=== PATIENT | female | born 2000 | race Caucasian/White ===

== ENCOUNTER 2021-05-22 01:09 | Emergency (ER) | payer SELFPAY ==
[~2021-05-22] VITALS: Ht 162 cm; Wt 77.0 kg
--- NOTE | 2021-05-22 01:30 | ED Abdominal Pain ---
General Chief Complaint: Abdominal/GI Problems Stated Complaint: LT SIDE ABD PAIN Source of Information: Patient Exam Limitations: No Limitations History of Present Illness Date Seen by Provider: May 22, 2021 Time Seen by Provider: 01:16 Initial Comments 20-year-old female with no significant past medical history coming in due to left-sided abdominal pain. Has been going on for greater than 24 hours. Sharp, moderate, intermittent, and more in her left upper quadrant. Eating does not seem to change the pain. Has had some intermittent nausea but no vomiting for the past week. Denies any diarrhea or fever. LMP was 5 weeks ago. Had a positive test about 3 days ago and a negative yesterday. She believes she is having morning sickness. This is her second with her first being last year, but she says she had a miscarriage. Does endorse some dysuria, no hematuria, no vaginal discharge, no vaginal bleeding. Allergies and Home Medications Allergies Coded Allergies: Penicillins (Verified Allergy, Unknown, 05/22/21) Patient Home Medication List Home Medication List Reviewed: Yes Cefdinir (Cefdinir) 300 Mg Capsule, 300 MG PO BID Prescribed by: TIFFANIE AMRIO on 05/22/21 0256 Review of Systems Review of Systems Constitutional: No chills, No fever EENTM: No Blurred Vision Respiratory: Denies Cough, Denies Shortness of Air Cardiovascular: Denies Chest Pain Gastrointestinal: Abdominal Pain; Denies Diarrhea, Denies Nausea, Denies Vomiting Genitourinary: Burning Musculoskeletal: no symptoms reported Skin: no symptoms reported Psychiatric/Neurological: No Symptoms Reported Endocrine: No Symptoms Reported Hematologic/Lymphatic: No Symptoms Reported All Other Systems Reviewed Negative Unless Noted: Yes Past Flkttxi-Fizvei-Znxrrg Hx Patient Social History Tobacco Use?: No Substance use?: No Alcohol Use?: No Pt feels they are or have been: No Immunizations Up To Date Influenza Vaccine Up-to-Date: No; Not Current Past Medical History Surgeries: No Physical Exam Vital Signs Vital Signs - First Documented 05/22/21 05/22/21 01:26 01:38 Temp 36.8 Pulse 121 Resp 18 B/P (MAP) 101/79 (86) Pulse Ox 98 O2 Delivery Room Air Capillary Refill : Height/Weight/BMI Height: '" Weight: lbs. oz. kg; BMI Method: General Appearance: WD/WN, no apparent distress HEENT: PERRL/EOMI, normal ENT inspection, pharynx normal Neck: non-tender, full range of motion, supple, normal inspection Respiratory: chest non-tender, lungs clear, normal breath sounds, no respiratory distress, no accessory muscle use Cardiovascular: regular rate, rhythm, no edema, no murmur Gastrointestinal: normal bowel sounds, soft; No distended, No guarding, No rebound; tenderness (maximal tenderness in the LUQ) Extremities: normal range of motion, non-tender, normal inspection, no pedal edema, no calf tenderness, normal capillary refill Back: normal inspection, no CVA tenderness, no vertebral tenderness Neurologic/Psychiatric: no motor/sensory deficits, alert, normal mood/affect Skin: normal color, warm/dry Lymphatic: no adenopathy Progress/Results/Core Measures Results/Orders Lab Results Laboratory Tests Test 05/22/21 01:25 Range/Units White Blood Count 11.1 H 4.3-11.0 10^3/uL Red Blood Count 5.05 3.80-5.11 10^6/uL Hemoglobin 14.6 11.5-16.0 g/dL Hematocrit 42 35-52 % Mean Corpuscular Volume 83 80-99 fL Mean Corpuscular Hemoglobin 29 25-34 pg Mean Corpuscular Hemoglobin Concent 35 32-36 g/dL Red Cell Distribution Width 13.0 10.0-14.5 % Platelet Count 364 130-400 10^3/uL Mean Platelet Volume 9.9 9.0-12.2 fL Immature Granulocyte % (Auto) 0 % Neutrophils (%) (Auto) 71 42-75 % Lymphocytes (%) (Auto) 20 12-44 % Monocytes (%) (Auto) 8 0-12 % Eosinophils (%) (Auto) 0 0-10 % Basophils (%) (Auto) 1 0-10 % Neutrophils # (Auto) 7.9 H 1.8-7.8 10^3/uL Lymphocytes # (Auto) 2.2 1.0-4.0 10^3/uL Monocytes # (Auto) 0.9 0.0-1.0 10^3/uL Eosinophils # (Auto) 0.0 0.0-0.3 10^3/uL Basophils # (Auto) 0.1 0.0-0.1 10^3/uL Immature Granulocyte # (Auto) 0.0 0.0-0.1 10^3/uL Urine Color YELLOW Urine Clarity CLEAR Urine pH 6.0 5-9 Urine Specific Fords 1.010 L 1.016-1.022 Urine Protein NEGATIVE NEGATIVE Urine Glucose (UA) NEGATIVE NEGATIVE Urine Ketones NEGATIVE NEGATIVE Urine Nitrite NEGATIVE NEGATIVE Urine Bilirubin NEGATIVE NEGATIVE Urine Urobilinogen 0.2 < = 1.0 MG/DL Urine Leukocyte Esterase TRACE H NEGATIVE Urine RBC (Auto) NEGATIVE NEGATIVE Urine RBC NONE /HPF Urine WBC 5-10 H /HPF Urine Squamous Epithelial Cells 10-25 H /HPF Urine Crystals NONE /LPF Urine Bacteria FEW H /HPF Urine Casts NONE /LPF Urine Mucus SMALL H /LPF Urine Culture Indicated YES Sodium Level 138 135-145 MMOL/L Potassium Level 3.6 3.6-5.0 MMOL/L Chloride Level 103 98-107 MMOL/L Carbon Dioxide Level 22 21-32 MMOL/L Anion Gap 13 5-14 MMOL/L Blood Urea Nitrogen 11 7-18 MG/DL Creatinine 0.67 0.60-1.30 MG/DL Estimat Glomerular Filtration Rate 129 BUN/Creatinine Ratio 16 Glucose Level 109 H 70-105 MG/DL Calcium Level 9.8 8.5-10.1 MG/DL Corrected Calcium 8.5-10.1 MG/DL Total Bilirubin 1.1 H 0.1-1.0 MG/DL Aspartate Amino Transf (AST/SGOT) 15 5-34 U/L Alanine Aminotransferase (ALT/SGPT) 11 0-55 U/L Alkaline Phosphatase 77 40-136 U/L C-Reactive Protein < 0.30 <0.50 MG/DL Total Protein 7.8 6.4-8.2 GM/DL Albumin 4.7 H 3.2-4.5 GM/DL Lipase 15 8-78 U/L Human Chorionic Gonadotropin, Quant < 5 <5 MIU/ML My Orders Orders - TIFFANIE MARIO MD Cbc With Automated Diff (05/22/21 01:30) Comprehensive Metabolic Panel (05/22/21 01:30) Hcg,Quantitative (05/22/21 01:30) Lipase (05/22/21 01:30) Ua Culture If Indicated (05/22/21:30) Crp Fs (05/22/21 01:30) Acetaminophen Tablet (Tylenol Tablet) (05/22/21 01:45) Urine Culture (05/22/21 01:25) Ct Abdomen/Pelvis W (05/22/21 02:16) Cefdinir Capsule (Omnicef Capsule) (05/22/21 02:30) Iohexol Injection (Omnipaque 350 Mg/Ml 1 (05/22/21 02:30) Received Contrast (Hold Metformin- Contr (05/22/21 02:30) Sodium Chloride Flush (Catheter Flush Sy (05/22/21 02:30) Ns (Ivpb) (Sodium Chloride 0.9% Ivpb Bag (05/22/21 02:30) Medications Given in ED Current Medications Medications Dose Ordered Sig/Jf Route Start Time Stop Time Status Last Admin Dose Admin Acetaminophen 1,000 mg ONCE ONCE PO 05/22/21 01:45 05/22/21 01:46 DC 05/22/21 01:38 1,000 MG Cefdinir 300 mg ONCE ONCE PO 05/22/21 02:30 05/22/21 02:31 DC 05/22/21 02:55 300 MG Iohexol 100 ml ONCE ONCE IV 05/22/21 02:30 05/22/21 02:31 DC 05/22/21 02:53 100 ML Sodium Chloride 10 ml NEEDED PRN IV 05/22/21 02:30 05/22/21 02:53 10 ML Sodium Chloride 100 ml ONCE ONCE IV 05/22/21 02:30 05/22/21 02:31 DC 05/22/21 02:53 100 ML Vital Signs/I&O 05/22/21 05/22/21 05/22/21 05/22/21 01:26 01:38 01:56 02:31 Temp 36.8 Pulse 121 104 99 Resp 18 18 18 B/P (MAP) 101/79 (86) 148/78 121/69 Pulse Ox 98 97 98 O2 Delivery Room Air Room Air Room Air 05/22/21 05/22/21 02:55 03:34 Pulse 85 92 Resp 18 18 B/P (MAP) 129/63 117/59 Pulse Ox 98 98 O2 Delivery Room Air Room Air Progress Progress Note : Progress Note 20-year-old female with above history coming in due to left-sided abdominal pain. ABCs were intact and vitals were stable on presentation. Physical exam reassuring, although she does have some left upper quadrant tenderness maximally compared to other areas. She has no signs of peritonitis. Beta-hCG is negative, so it is possible she already had a miscarriage if she truly did have a positive test early on in the week, or the possible she did not read the test correctly. Urinalysis with possible infection although it is a dirty sample with numerous squamous cells. She is symptomatic with dysuria however, so we will treat her with cefdinir. She has an allergy to amoxicillin, however she says this was as a baby and she has not even remember she had anything more than a small rash. We will give her the first dose here to monitor her. Basic labs otherwise reassuring. CT abdomen pelvis ordered showing no acute abnormalities. I believe the patient is stable for discharge with outpatient follow-up. She was sent home with strict return precautions. Departure Impression Primary Impression: UTI (urinary tract infection) Qualified Codes: N39.0 - Urinary tract infection, site not specified Additional Impression: Left sided abdominal pain Disposition: HOME, SELF-CARE Condition: Stable Departure-Patient Inst. Decision time for Depature: 04:03 Referrals: NO,LOCAL PHYSICIAN (PCP/Family) Primary Care Physician Patient Instructions: Urinary Tract Infection, Adult ED Add. Discharge Instructions: I sent antibiotics to your pharmacy which she will take for the next 5 days. Take ibuprofen 600 mg every 6 hours as needed for pain. You can also try heating pad. Follow-up with your regular doctor if things are not improving. Scripts Cefdinir (Cefdinir) 300 Mg Capsule 300 MG PO BID for 5 Days, #10 CAP 0 Refills Prov: TIFFANIE MARIO MD 05/22/21 TIFFANIE MARIO MD May 22, 2021 01:30
[2021-05-22] MEDS ORDERED: ACETAMINOPHEN 500 MG TAB (TYLENOL) PO ONE (01:45)
[2021-05-22 01:51] LABS: BASOPHILS # (AUTO) 0.1 10^3/uL (0.0-0.1); BASOPHILS % (AUTO) 1 % (0-10); EOSINOPHILS % (AUTO) 0 % (0-10); HEMATOCRIT 42 % (35-52); HEMOGLOBIN 14.6 g/dL (11.5-16.0); LYMPHOCYTES # (AUTO) 2.2 10^3/uL (1.0-4.0); LYMPHOCYTES % (AUTO) 20 % (12-44); MEAN CORPUSCULAR HEMOGLOBIN 29 pg (25-34); MEAN CORPUSCULAR HGB CONC 35 g/dL (32-36); MEAN CORPUSCULAR VOLUME 83 fL (80-99); MEAN PLATELET VOLUME 9.9 fL (9.0-12.2); MONOCYTES # (AUTO) 0.9 10^3/uL (0.0-1.0); MONOCYTES % (AUTO) 8 % (0-12); NEUTROPHILS # (AUTO) 7.9 10^3/uL (1.8-7.8); NEUTROPHILS % (AUTO) 71 % (42-75); PLATELET COUNT 364 10^3/uL (130-400); WHITE BLOOD COUNT 11.1 10^3/uL (4.3-11.0)
[2021-05-22 01:58] LABS: BILIRUBIN,URINE NEGATIVE (NEGATIVE); CLARITY,URINE CLEAR; COLOR,URINE YELLOW; GLUCOSE, URINE (UA) NEGATIVE (NEGATIVE); KETONES,URINE NEGATIVE (NEGATIVE); LEUKOCYTE ESTERASE ,URINE TRACE (NEGATIVE); NITRITE,URINE NEGATIVE (NEGATIVE); PROTEIN,URINE NEGATIVE (NEGATIVE)
[2021-05-22 02:07] LABS: BACTERIA,URINE FEW /HPF
[2021-05-22 02:13] LABS: BUN/CREATININE RATIO 16; CARBON DIOXIDE 22 MMOL/L (21-32); CHLORIDE 103 MMOL/L (98-107); CREATININE SERUM 0.67 MG/DL (0.60-1.30); GFR ESTIMATED 129; POTASSIUM 3.6 MMOL/L (3.6-5.0); SODIUM 138 MMOL/L (135-145)
[2021-05-22 02:14] LABS: ALANINE AMINOTRANSFERASE 11 U/L (0-55); ALBUMIN 4.7 GM/DL (3.2-4.5); ALKALINE PHOSPHATASE 77 U/L (40-136); BILIRUBIN,TOTAL 1.1 MG/DL (0.1-1.0); CALCIUM 9.8 MG/DL (8.5-10.1); GLUCOSE 109 MG/DL (70-105); LIPASE 15 U/L (8-78); TOTAL PROTEIN 7.8 GM/DL (6.4-8.2)
[2021-05-22] MEDS ORDERED: CATHETER FLUSH 10 ML SYR IV PRN (02:30)
[2021-05-22] MEDS ORDERED: CEFDINIR 300 MG (OMNICEF) CAP PO ONE (02:30)
[2021-05-22] MEDS ORDERED: NS 100 ML (IVPB) BAG IV ONE (02:30)
[2021-05-22] MEDS ORDERED: IOHEXOL 350 MG/ML 100 ML (OMNIPAQUE 350) VIAL IV ONE (02:30)
[2021-05-22] MEDS ORDERED: HOLD METFORMIN - RECEIVED CONTRAST 20 ML VIAL IV SCH (02:30)
[2021-05-22] MEDS ORDERED: CEFD300C3 PO (02:56)
[2021-05-22 04:07] VITALS: BP 117/59
--- NOTE | 2021-05-22 04:54 | Diagnostic Imaging Report ---
PROCEDURE: CT abdomen and pelvis with contrast. TECHNIQUE: Multiple contiguous axial images were obtained through the abdomen and pelvis after administration of intravenous contrast. Auto Exposure Controls were utilized during the CT exam to meet ALARA standards for radiation dose reduction. All CT scans use one or more of the following dose optimizing techniques: automated exposure control, MA and/or KvP adjustment based on patient size and exam type or iterative reconstruction. INDICATION: Left-sided abdominal pain The lung bases are clear. Liver appears normal. The gallbladder appears normal. The portal vein is patent. Common duct is not dilated. Pancreas appears normal. The spleen is not enlarged. Kidneys and adrenals appear normal. Small bowel is not dilated. Colon appears normal. There is no evidence of appendicitis. Uterus is normal. There is a small partially collapsed cyst on the right ovary. This measures 1.5 cm. Left ovary unremarkable. There is no intraperitoneal free air or free fluid. IMPRESSION: Unremarkable CT abdomen and pelvis I agree with preliminary interpretation. Dictated by: Dictated on workstation # [id number]
== END 2021-05-22 04:08 | disposition home or self-care (01) ==
LOC: EDBD 01:11 → ER FS 01:11
DX: N39.0 Urinary tract infection, site not specified (principal); Z32.02 Encounter for pregnancy test, result negative
CPT/HCPCS: 36415; 74177; 80053; 81000; 83690; 84702; 85025; 86141; 87088; Q9967